=== PATIENT | male | born 1980 | race African-American/Black ===

== ENCOUNTER → 2017-12-12 | Outpatient (CLI) | payer SELFPAY ==
[2017-12-12 12:44] LABS: ALBUMIN 4.1 gm/dL (3.5-5.0); BILIRUBIN,TOTAL 0.8 mg/dL (0.0-1.0); CALCIUM 9.4 mg/dL (8.4-10.2); CREATININE, serum 0.84 mg/dL (0.66-1.25); POTASSIUM 4.1 mmol/L (3.4-5.0)
== END ==
LOC: COL.LAB 11:39
DX: F10.10 Alcohol abuse, uncomplicated (principal)